=== PATIENT | male | born 1960 | race Caucasian/White ===

== ENCOUNTER 2018-10-13 11:33 | Inpatient (IN) | payer OTHER, SELFPAY ==
[2018-10-01 09:51] VITALS: BMI 42.0
[2018-10-13] VITALS (12 sets, daily range): BP systolic 106–157; BP diastolic 56–89; PULSE 60–97; RESP 15–19; TEMP 36.1–37.2; O2SAT 92–96; BMI 44.8
--- NOTE | 2018-10-13 06:00 | DI.RAD.S_ITS ---
PROCEDURE: XR KNEE RT 1TO2V INDICATIONS: post op TECHNIQUE: 2 view(s) of the knee acquired. COMPARISON: None. FINDINGS: Bones: Patient is status post knee joint arthroplasty. Hardware components are in expected positions. Visualized bony structures are intact. Soft tissues: Overlying postoperative changes are noted. IMPRESSION: Normal postoperative alignment anterior right total knee arthroplasty. Dictated by: Pan Schneider M.D. on 10/13/2018 at 16:24 Approved by: Pan Schneider M.D. on 10/13/2018 at 16:24
[2018-10-13] MEDS: ACETAMINOPHEN 325 MG TABLET 975 MG PO ×2 (12:08→20:17)
[2018-10-13] MEDS: PREGABALIN 75 MG CAPSULE PO (12:08)
[2018-10-13] MEDS: CELECOXIB 200 MG CAPSULE PO (12:08)
[2018-10-13] MEDS: LACTATED RINGERS 1,000 ML 84 ML IV (12:10)
--- NOTE | 2018-10-13 12:50 | PM.PREOP ---
Pre-operative Note Interval Note History & Physical reviewed/Exam performed by Physician: Yes Changes to H&P: No
[2018-10-13] MEDS: CEFAZOLIN VIAL 3 GM in SODIUM CHLORIDE 0.9% 100 ML 200 ML IV (13:26)
[2018-10-13] MEDS: TRANEXAMIC ACID 1,000 MG VIAL 1000 MG IV ×2 (13:46→15:20)
--- NOTE | 2018-10-13 14:07 | SUR.OPER ---
Supine on padded OR bed. Pillow under head, arms secured on padded armboards <90 degree abduction. Safety belt across torso. Non-operative leg secured with tape over blanket over lower leg. Operative leg secured in DeMayo/Dragan positioner. Foam padded brace at thigh of operative leg.
[2018-10-13] MEDS: MORPHINE 4 MG/ML INJ INJ (14:18)
[2018-10-13] MEDS: BUPIVACAINE 0.25% W/ EPI 30 ML VIAL INJ (14:19)
[2018-10-13] MEDS: BUPIVACAINE LIPOSOME 266 MG/20 ML VIAL INJ (14:19)
[2018-10-13] MEDS: LACTATED RINGERS 1,000 ML 42 ML IV (14:51)
--- NOTE | 2018-10-13 15:39 | P.OP_ITS ---
Operative Date/Time/Diagnoses Date of procedure: 10/13/18 Time of procedure: 15:20 Pre-op diagnosis: Right knee osteoarthritis Post-op diagnosis: same Procedure & Clinicians Procedure: Right total knee replacement Same procedure as scheduled: Yes Indications: The patient has had progressively worsening right knee pain with radiographic changes consistent with arthritis. Non-operative management has failed and the patient has requested total knee replacement. The risks, benefits and alternatives to surgery were discussed with the patient prior to proceeding. Risks discussed included, but were not limited to, failure to relieve pain, stiffness, infection, nerve damage, deep venous thrombosis, pulmonary embolism, stroke, coma, heart attack, permanent paralysis and , as well as the potential need for eventual revision of the prosthetic. Surgeon: Gordon Puentes [employer] Coxswain: Nataly Ko Click Yes if Unassisted: No Anesthesia Type: General and Local Operative Notes Findings: Severe medial compartment and patellofemoral osteoarthritis moderate lateral compartment osteoarthritis. Closure Type: primary Specimen(s): none sent Prosthetic devices, grafts, tissues, transplants, or devices: Implants used in this procedure were manufactured by the [employer] and included the BCS II Journey total knee replacement with a size 8 right Oxinium femur, a size 8 non porous tibial base plate, a 10 mm cross-linked polyethylene tibial insert and a 38 mm oval Laila II patellar component. Applied: implant(s) Estimated Blood Loss (mL): 50 Blood products transfused: none Tourniquet time (min): 62 Procedure in detail: The patient was seen in the pre-operative area, where the patient identified the right knee as the operative site and this was marked with my initials. The patient received pre-operative antibiotics, and was taken to the operating room and placed on the operative table in the supine position. After satisfactory anesthesia, a time analysis clerk out was performed. The right leg was encircled with a tourniquet about the proximal thigh, and the leg was prepared from the toes to the tourniquet with ChloroPrep in the usual fashion and draped through sterile drapes. The leg was elevated and exsanguinated with Eschmark bandage and the tourniquet inflated to 250 mmHg pressure. The knee was approached through an approximately 18 cm incision centered over the patella and carried into the knee through a medial parapatellar arthrotomy. The anterior osteophytes and soft tissues were removed. The rotational landmarks of [place]'s line and the transepicondylar axis were marked on the femur with electrocautery, and intramedullary guide holes for the femur and tibia were created. The distal femoral cut was made in 6 degrees of valgus using the intramedullary guide at the primary cut setting. The proximal tibial cut was then made using the intramedullary guide, taking 9 mm of bone off the less involved side. The extension gap was checked and the rotation of the femoral component confirmed with the gap balancing system. The anterior, posterior and chamfer cuts were then made. The posterior osteophytes and soft tissues were then removed. The posterior capsule was injected with part of a mixture of 60 ml 0.25% Marcaine mixed with 20 ml Exparel and 4 mg of morphine for post-operative pain control. The remainder of this mixture was injected into the capsule and subcutaneous tissues during cement curing. The tibia was prepared with the rotation set by an extra medullary guide. Trial tibial and femoral components were then placed and the intercondylar notch cut through the femoral trial. Range of motion was 0-125 degrees, with good stability throughout the range. The patella was then cut to accommodate the patellar prosthetic. There was a slight tendency for patellar subluxation so a ?pie crust? lateral release was performed. The trials were then removed, and the femoral hole plugged with a bone plug. The bone was prepared with pulsatile lavage, and dried with a sponge. Cement was applied and the final prosthetics placed. Excess cement was removed during and after cement curing. After confirming there was no extruded cement posteriorly, the final tibial insert was placed. The knee was copiously irrigated and the tourniquet deflated. Hemostasis was obtained. The capsule was closed with interrupted # 2 polyester suture. The subcutaneous layer was closed with 3-0 Vicryl, and the skin with a running 3-0 V-Lock suture and SteriStrips. An Aquacel Ag dressing was applied and the patient was taken to recovery having tolerated the procedure well. Complications: none Condition: stable Disposition: PACU Plan for aftercare: The patient will be maintained on a standard total knee replacement protocol with weight bearing as tolerated. The patient will receive aspirin and sequential compression devices for DVT prophylaxis. The patient will be discharged home when safe for the home environment.
[2018-10-13] MEDS: LACTATED RINGERS 1,000 ML 125 ML IV (17:33)
[2018-10-13] MEDS: OXYCODONE IR 10 MG TABLET PO (18:08)
[2018-10-13] MEDS: DOCUSATE 100 MG CAPSULE PO (20:17)
[2018-10-13] MEDS: ASPIRIN EC 81 MG TABLET PO (20:17)
[2018-10-13] MEDS: HYDROMORPHONE 0.5 MG INJ IV (20:17)
[2018-10-13] MEDS: DORZOLAMIDE/TIMOLOL OPHTH 10 ML 1 DROPS EYE-BOTH (20:23)
[2018-10-13] MEDS: CEFAZOLIN 2 GM/100 ML FROZ.PIGGY IV (20:31)
--- NOTE | 2018-10-13 22:45 | PC.NURSE ---
Justina shift note: 1630 Patient admitted s/p Right TKA, awake, alert, and pleasant. Pain controlled with medications ordered adequately, Oxycodone 10 mg. Oriented to room, environment, and plan of care. Requesting for medication to help with insomnia 0, called [facility] to request medication, awaiting for call.
[2018-10-14] MEDS: hydrOXYzine pamoate 25 MG CAPSULE PO (00:40)
[2018-10-14] MEDS: OXYCODONE IR 10 MG TABLET PO ×4 (00:40→16:54)
[2018-10-14] MEDS: LACTATED RINGERS 1,000 ML 125 ML IV (01:21)
[2018-10-14 03:21] VITALS: BP 146/76; PULSE 84; RESP 19; TEMP 37.3; O2SAT 95
[2018-10-14 05:31] LABS: Hematocrit 39.1 % (41-53); Hemoglobin 13.8 g/dL (13.5-17.5)
[2018-10-14] MEDS: CEFAZOLIN 2 GM/100 ML FROZ.PIGGY IV (05:44)
[2018-10-14 07:00] VITALS: BP 142/76; PULSE 82; RESP 16; TEMP 37.1; O2SAT 96
--- NOTE | 2018-10-14 07:29 | PM.PNPO.1 ---
Subjective Date Patient Seen: 10/14/18 Time Patient Seen: 07:29 Interval history: The patient reports the anticipated postoperative pain. Nursing reports he had insomnia and requests as needed Ambien. Exam Vital Signs (past 8 hours): - 10/13/18 23:35 10/14/18 03:21 Temperature 98.9 F 99.2 F Pulse Rate 72 84 Respiratory Rate 19 19 Blood Pressure 157/89 H 146/76 H Pulse Oximetry 96 95 Oxygen Delivery Method Room Air Oxygen Flow Rate 0 Narrative Exam Narrative: Right knee wound is dressed. If there is no drainage on the bandage. Calf is soft. Light touch and motion are intact in the right lower extremity. Objective Labs Result Diagrams: 10/14/18 05:07 Labs: Laboratory Results - last 24 hr 10/14/18 05:07 Hgb 13.8 Hct 39.1 L Assessment & Plan Post-op Postoperative Procedures Operation Date: 10/13/18 13:15 Actual Procedures Side Surgeon p Total Knee Arthroplasty Right Gordon Puentes MD Postoperative day: 1 Postoperative status: doing well, marginal pain control and anemia Postoperative status narrative: The patient is stable postoperative day 1 status post right total knee replacement. He has a very mild and anticipated post hemorrhagic anemia. He did have difficulty sleeping last night. Postoperative plan: routine post-op care and ambulate Postoperative plan narrative: The patient will be seeing Physical therapy today. He did not have physical therapy yesterday and given his size it is likely he will require an additional day of hospitalization to mobilize. He likely will be discharged tomorrow. I have written for 5 mg p.o. q.h.s. Ambien as needed. Time Spent With Patient less than 15 minutes
[2018-10-14] MEDS: ASPIRIN EC 81 MG TABLET PO ×2 (08:07→19:54)
[2018-10-14] MEDS: ACETAMINOPHEN 325 MG TABLET 975 MG PO ×3 (08:08→20:00)
[2018-10-14] MEDS: MELOXICAM 7.5 MG TABLET 15 MG PO (08:08)
[2018-10-14] MEDS: CALCIUM POLYCARBOPHIL 625 MG TABLET 1250 MG PO (08:09)
[2018-10-14] MEDS: AMLODIPINE 5 MG TABLET PO (08:09)
[2018-10-14] MEDS: DOCUSATE 100 MG CAPSULE PO ×2 (08:11→19:54)
[2018-10-14] MEDS: DORZOLAMIDE/TIMOLOL OPHTH 10 ML 1 DROPS EYE-BOTH ×2 (08:12→19:57)
[2018-10-14] MEDS: ONDANSETRON 4 MG ODT PO (08:15)
[2018-10-14] MEDS: hydroCHLOROthiazide 25 MG TABLET PO (08:15)
[2018-10-14] MEDS: MULTIVITAMIN 1 TABLET 1 TAB PO (08:16)
[2018-10-14] MEDS: SERTRALINE 50 MG TABLET 100 MG PO (08:16)
[2018-10-14] MEDS: LORATADINE 10 MG TABLET PO (08:16)
[2018-10-14] MEDS: POLYETHYLENE GLYCOL 3350 17 GM POWD.PACK PO (08:23)
[2018-10-14] MEDS: FOSINOPRIL 10 MG TABLET 40 MG PO (08:36)
--- NOTE | 2018-10-14 08:59 | CM.DANOTE ---
DCP: Case received, EMR reviewed and met with patient. Introduced self and role. DCP template completed with information currently available. Patient is a 57 year old male who admitted yesterday morning to the care of the surgical team. PCP: Dr. Gonzalez. Payer: confirmed: [employer]. Patient came to hospital for surgical procedure. He had R. total knee arthroplasty. He has had chronic right knee pain, and has history of right knee osteoarthritis. Patient is employed at [employer]. Met with him briefly in his room. Patient lives alone in [place], but he stated that he has a friend staying with him to help him when he goes home. Patient is already set up with outpatient physical therapy through [facility]. He has a cane and FWW for use. P: DCP to continue to follow closely. He has not been up yet working with physical therapy. Patient should be able to go home when he is cleared by physical therapy. Aurora Bowling RN/[facility]
--- NOTE | 2018-10-14 09:20 | PT.IIE ---
Current Diagnoses Unilateral primary osteoarthritis, right knee (10/13/18) Surgery Performed Operation Date: 10/13/18 13:15 Actual Procedures p Total Knee Arthroplasty(Right) - Gordon Puentes MD Surgical History (Last Updated 10/01/18 @ 10:26 by Alba Birmingham, RN) History of bilateral cataract extraction (Acute) History of corneal transplant (Acute) Hx of abdominal surgery (Acute) Hx of abdominal surgery (Acute ~1986) Hx of eye surgery (Acute) Hx of laminectomy (Acute 11/30/16) Hx of sinus surgery (Acute) Hx of tonsillectomy (Acute ~2014) Medical History (Last Updated 10/01/18 @ 10:26 by Alba Birmingham RN) Anxiety and depression (Acute) Bronchitis (Acute) Elevated liver enzymes (Acute) Fatty liver disease, nonalcoholic (Acute) Glaucoma (Acute) HTN (hypertension) (Acute) Numbness (Acute) Osteoarthritis (Acute) Psoriasis (Acute) Sinus drainage (Acute) Sleep apnea (Acute) Physical Therapy Inpatient Evaluation/Re-Eval M1 PT/OT-IP Prior Functional Status Start: 10/14/18 12:03 Freq: NEEDED Status: Active Protocol: Document 10/14/18 10:04 AB (Rec: 10/14/18 12:22 AB [id number]) Medical Review Prior Functional Status Medical History Reviewed Yes Communication able to make needs known Mobility and Gait stated that he is independent with all mobilities and ambulation without AD but has used a SPC ~ 1 week prior to surgery due to knee pain; stated that he had used a knee brace/support on R for a while prior to surgery Social History Household Members none Living Arrangements House Number of Floors (Floors) One Floor Number of Stairs To Enter/Railing? 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 [place] M2 PT-IP Current Condition Start: 10/14/18 12:03 Freq: NEEDED Status: Active Protocol: Document 10/14/18 10:04 AB (Rec: 10/14/18 12:22 AB [id number]) Physical Therapy Current Condition Current Condition Evaluation Date 10/14/18 Treatment Diagnosis s/p R TKA; difficulty in walking Onset Date 10/13/18 Weight Bearing Status Weight Bearing Status Weight Bear as Tolerated M3 PT-IP Subjective Start: 10/14/18 12:03 Freq: NEEDED Status: Active Protocol: Document 10/14/18 10:04 AB (Rec: 10/14/18 12:22 AB [id number]) Subjective Physical Therapy Visit Type Type Initial Evaluation Visit Start Time 09:20 Visit Stop Time 10:04 Total Visit Minutes 54 Number of YARD CLEANER Visits 0 Physical Therapy Visit Comments Patient Comments pt agreeable to do PT Therapy Pain Assessment Pain When Pain Assessed At Rest Pain Present Pain Present Pain Reported Location Right Knee Intensity 8 Scale Used Numeric (1 - 10) Pain Management Techniques Apply Cold Re-positioning Timing of Activity with Medications M4 PT-IP Mobility and Gait Start: 10/14/18 12:03 Freq: NEEDED Status: Active Protocol: Document 10/14/18 10:04 AB (Rec: 10/14/18 12:22 AB [id number]) PT-Bed Mobility Assessment Supine to Sit Supine to Sit Moderate Assistance 1 Person Assistance Sit to Supine Sit to Supine Moderate Assistance 1 Person Assistance PT-Transfer Assessment Sit to and From Stand Sit to and from Stand Moderate Assistance 1 Person Assistance Use of Upper Extremities Equipment Transfer Assistive Device Gait Belt Front Wheeled Walker Transfers Transfer Destination Chair Transfer Technique Stand Step Pivot Transfer Ability Level of Assist Moderate Assistance 1 Person Assistance Use of Upper Extremities Gait Assessment Gait Gait Assistance Required: Moderate Assistance Distance (Feet) 25 Able to Maintain Weight Bearing Status Yes During Gait Assistive Devices Assistive Device Gait Belt Front Wheeled Walker Gait Deviations General Gait Pattern Antalgic Decreased Stride Length Decreased Feet Clearance Factors Limiting Gait Function Factors Limiting Gait Function Decreased Activity Tolerance Decreased Strength Limited Range of Motion Pain Poor Balance PT-Balance Assessment Sitting Balance and Reactions Static Sitting Balance Ability Good Dynamic Sitting Balance Ability Good Standing Balance and Reactions Static Standing Balance Ability Fair Dynamic Standing Balance Ability Poor Device Used FWW M5 PT-IP Objective Assessments Start: 10/14/18 12:03 Freq: NEEDED Status: Active Protocol: Document 10/14/18 10:04 AB (Rec: 10/14/18 12:22 AB [id number]) Orientation Orientation/Cognition Level of Alertness Alert Orientation Name Age Birthday Month Date Year Day of Week Place Situation Language Function Ability No Deficits Noted Gross Range of Motion Lower Extremity ROM Assessment Right Impaired Impairments R knee flexion: ~ 50 deg R knee extension lacking ~ 30 deg to neutral Strength Lower Extremity Strength Assessment Right Impaired Knee 3-/5 Coordination Assessment Gross Coordination Gross Coordination WNL Sensation Assessment Sensation Gross Sensation WNL Muscle Tone Muscle Tone WNL Yes M6 PT-IP Treatment Start: 10/14/18 12:03 Freq: NEEDED Status: Active Protocol: Document 10/14/18 10:04 AB (Rec: 10/14/18 12:22 AB [id number]) Physical Therapy Treatment Exercises Exercises Ankle Pumps Quad Sets Heel Slides Education Education Provided Precautions Weight Bearing Status Post-Op Packet Safety M7 PT-IP Assessment and Plan Start: 10/14/18 12:03 Freq: NEEDED Status: Active Protocol: Document 10/14/18 10:04 AB (Rec: 10/14/18 12:22 AB [id number]) PT Summary Assessment and Plan Potential Rehabilitation Potential Good Status of Condition at Evaluation Evolving Summary Impairments Pain ROM Strength Balance Coordination Sensation Tone Cognition Bed Mobility Transfers Gait Activity Tolerance Assessment Summary pt requiring mod A with mobility but will likely improve during hospital stay. pt plans to go home with his mom assisting him. pt stated that he is set up for outpt PT already. Goals Bed Mobility Goal Standby Assistance Transfer Goal Standby Assistance Front Wheeled Walker Four Wheeled Walker Gait Goal Standby Assistance Front Wheel Walker Four Wheel Walker Gait Distance 150 Other Goals up/down 1 step using FWW/4WW SBA Days to Meet Goals 5 Frequency of Treatment Frequency Of Treatment Twice a Day Treatment Plan Physical Therapy Treatment Plan Bed Mobility Training Transfer Training Gait Training Therapeutic Exercise Balance Retraining Post Op Education Discharge Planning Hot or Cold Pack Neuromuscular Re-ed Coordination Retraining Manual Therapy Other Recommendations and Next Treatment ambulation, bed mobility, Focus caregiver training if appropriate, stair training Recommendations To Nursing Amount of Assist Needed 1 Person Assist Discharge Recommendations PT Discharge Recommendations Home with Assistance Outpatient PT Equipment Needed for Home Before FWW if not safe with 4WW Discharge
--- NOTE | 2018-10-14 09:58 | PC.NURSE ---
Addendum entered by Kindra Ag R.N. 10/14/18 11:48: PAIN - r knee discomfort well managed with earlier oxycodone, 5 on scale 0/10, given 10mg oxycodone with lunch for afternoon mobilization. Original Note: AM NOTE - pt is alert, states no pain when I don't move, otherwise describes as 8/10 r knee, aquacell cdi w/virgen wrap over, applied ice pack to knee, given 10mg oxycodone with breakfast, later stated his stomach felt different and given 4mg SL zofran, 2+ pedal edema, hr reg 88, phys therapy in this am and mobilized pt up oob to chair, states it was better than I thought.
[2018-10-14 11:40] VITALS: BP 145/76; PULSE 71; RESP 16; TEMP 36.8; O2SAT 94
[2018-10-14] MEDS: prednisoLONE OPHTH SUSP 1 DROPS EYE-LEFT (11:42)
--- NOTE | 2018-10-14 14:13 | PT.IPTN ---
Current Diagnoses Unilateral primary osteoarthritis, right knee (10/13/18) Surgery Performed Operation Date: 10/13/18 13:15 Actual Procedures p Total Knee Arthroplasty(Right) - Gordon Puentes MD Physical Therapy Treatment Note M2 PT-IP Current Condition Start: 10/14/18 12:03 Freq: NEEDED Status: Active Protocol: Document 10/14/18 10:04 AB (Rec: 10/14/18 12:22 AB [id number]) Physical Therapy Current Condition Current Condition Evaluation Date 10/14/18 Treatment Diagnosis s/p R TKA; difficulty in walking Onset Date 10/13/18 Weight Bearing Status Weight Bearing Status Weight Bear as Tolerated M3 PT-IP Subjective Start: 10/14/18 12:03 Freq: NEEDED Status: Active Protocol: Document 10/14/18 14:13 AB (Rec: 10/14/18 16:10 AB [id number]) Subjective Physical Therapy Visit Type Type Treatment Note Visit Start Time 14:13 Visit Stop Time 14:36 Total Visit Minutes 23 Number of FULL SERVICE SUPERVISOR Visits 0 Physical Therapy Visit Comments Patient Comments pt agreeable to do PT Therapy Pain Assessment Pain When Pain Assessed At Rest Pain Present Pain Present Pain Reported Location Right Knee Intensity 5 Scale Used Numeric (1 - 10) Pain Management Techniques Apply Cold Re-positioning Timing of Activity with Medications M4 PT-IP Mobility and Gait Start: 10/14/18 12:03 Freq: NEEDED Status: Active Protocol: Document 10/14/18 14:13 AB (Rec: 10/14/18 16:10 AB [id number]) PT-Bed Mobility Assessment Sit to Supine Sit to Supine Minimal Assistance 1 Person Assistance PT-Transfer Assessment Sit to and From Stand Sit to and from Stand Contact Guard Assistance Minimal Assistance Equipment Transfer Assistive Device Gait Belt Front Wheeled Walker Orthotic/Prosthetic Devices or Brace: No Transfers Transfer Technique pt ambulated to the bed using FWW Transfer Ability Level of Assist Contact Guard Assistance Minimal Assistance 1 Person Assistance Use of Upper Extremities Gait Assessment Gait Gait Assistance Required: Contact Guard Assist Minimum Assistance Distance (Feet) 75 Able to Maintain Weight Bearing Status Yes During Gait Assistive Devices Assistive Device Gait Belt Front Wheeled Walker Orthotic/Prosthetic Devices or Brace: No Gait Deviations General Gait Pattern Antalgic Decreased Stride Length Decreased Feet Clearance Factors Limiting Gait Function Factors Limiting Gait Function Decreased Activity Tolerance Decreased Strength Limited Range of Motion Pain Poor Balance Poor Safety Awareness Comments Gait Comments pt can be impulsive. continues to have slight R knee buckling during ambulation but able to control with cues provided. M5 PT-IP Objective Assessments Start: 10/14/18 12:03 Freq: NEEDED Status: Active Protocol: Document 10/14/18 10:04 AB (Rec: 10/14/18 12:22 AB [id number]) Orientation Orientation/Cognition Level of Alertness Alert Orientation Name Age Birthday Month Date Year Day of Week Place Situation Language Function Ability No Deficits Noted Gross Range of Motion Lower Extremity ROM Assessment Right Impaired Impairments R knee flexion: ~ 50 deg R knee extension lacking ~ 30 deg to neutral Strength Lower Extremity Strength Assessment Right Impaired Knee 3-/5 Coordination Assessment Gross Coordination Gross Coordination WNL Sensation Assessment Sensation Gross Sensation WNL Muscle Tone Muscle Tone WNL Yes M6 PT-IP Treatment Start: 10/14/18 12:03 Freq: NEEDED Status: Active Protocol: Document 10/14/18 14:13 AB (Rec: 10/14/18 16:10 AB [id number]) Physical Therapy Treatment Education Education Provided Safety M7 PT-IP Assessment and Plan Start: 10/14/18 12:03 Freq: NEEDED Status: Active Protocol: Document 10/14/18 14:13 AB (Rec: 10/14/18 16:10 AB [id number]) PT Summary Assessment and Plan Potential Rehabilitation Potential Good Summary Impairments Pain ROM Strength Balance Coordination Sensation Tone Cognition Bed Mobility Transfers Gait Activity Tolerance Progress Towards Goals Slow Progress due to Pain Slow Progress due to Activity Tolerance Assessment Summary pt requires one person assist with mobility and plans to go home with his mom to assist him. will conduct caregiver training when appropriate and will also complete stair climbing prior to d/c. informed pt regarding FWW recommendation vs 4WW at this time and pt agreed and stated that his mom will get him a FWW Goals Bed Mobility Goal Standby Assistance Transfer Goal Standby Assistance Front Wheeled Walker Gait Goal Standby Assistance Front Wheel Walker Gait Distance 150 Other Goals up/down 1 step using FWW SBA Days to Meet Goals 5 Frequency of Treatment Frequency Of Treatment Twice a Day Treatment Plan Physical Therapy Treatment Plan Bed Mobility Training Transfer Training Gait Training Therapeutic Exercise Balance Retraining Post Op Education Discharge Planning Hot or Cold Pack Neuromuscular Re-ed Coordination Retraining Manual Therapy Other Recommendations and Next Treatment ambulation, bed mobility, Focus caregiver training if appropriate, stair training Recommendations To Nursing Amount of Assist Needed 1 Person Assist Discharge Recommendations PT Discharge Recommendations Home with Assistance Outpatient PT Equipment Needed for Home Before FWW: pt stated that his mom Discharge will get him one
[2018-10-14 16:00] VITALS: PULSE 68; RESP 20; TEMP 36.7; O2SAT 93
--- NOTE | 2018-10-14 17:09 | PC.NURSE ---
Addendum entered by Annalee Carlson R.N. 10/14/18 22:04: Uneventful evening. Denies further complaints. Dsg CDI HL remains intact/patent. Call light w/in reach, pt calls appropriately for needs. Continue w/plan of care. Original Note: Pt watching TV. Requesting pain med. Med at 1700 w/oxycodone as per orders. Dsg to right knee CDI virgen wrap and aquacell. HL in right hand intact/patent. Stable post op course. Call light w/in reach, pt calls appropriately for needs.
[2018-10-14 19:36] VITALS: BP 138/74; PULSE 73; RESP 20; TEMP 36.9
[2018-10-14 23:25] VITALS: BP 137/79; PULSE 67; RESP 16; TEMP 36.7; O2SAT 96
[2018-10-15] MEDS: BIMATOPROST 0.01% OPHTH 2.5 ML 1 DROPS EYE-BOTH (00:50)
[2018-10-15] MEDS: ZOLPIDEM 5 MG TABLET PO (00:55)
[2018-10-15] MEDS: OXYCODONE IR 10 MG TABLET PO ×3 (00:55→12:26)
--- NOTE | 2018-10-15 07:21 | PM.DS.1 ---
History of Present Illness Date Patient Seen: 10/15/18 Time Patient Seen: 07:21 Chief complaint: [id number] Narrative: The history and physical exam are contained in the chart and a previously completed note. Please refer to that note for this information. Discharge Providers Date of admission: 10/13/18 11:33 Discharge Date: 10/15/18 Primary care physician: Jamil Gonzalez MD Consults: 10/13/18 16:54 Consult to Discharge Planning Routine Comment: Consult to Physical Therapy Evaluate & Treat Comment: Physician Instructions: postop TKA protocol Discharge provider: Gordon Puentes MD Summary Discharge Diagnosis: 1. Right knee osteoarthritis 2. Mild post hemorrhagic anemia Hospital Course: The patient was admitted to the hospital and taken directly to the operating room on October 13, 2018 where he underwent a right total knee replacement without complications. He made the slightly slow progress postoperatively with physical therapy. At the time of this dictation it is felt he likely will be discharged home after additional therapy today. Status at Discharge Cognitive/behavioral status at discharge: oriented Functional status at discharge: uses cane/walker Overall status at discharge: patient is progressing back to baseline Time Spent with Patient Less than 30 minutes Exam Vital Signs (past 8 hours): - 10/14/18 23:25 Temperature 98.1 F Pulse Rate 67 Respiratory Rate 16 Blood Pressure 137/79 Pulse Oximetry 96 Oxygen Delivery Method CPAP Oxygen Flow Rate 0 Narrative Exam Narrative: Right knee wound is dressed with no drainage on the bandage. Calf is soft. Light touch and motion are intact in the right lower extremity. Objective Labs Result Diagrams: 10/14/18 05:07 Discharge Plan Discharge Plan Patient Disposition: Home Discharge Med Rec/Prescriptions Prescriptions: New aspirin 81 mg Tablet,Delayed Release (Dr/Ec) 81 mg PO BID 42 Days Qty: 84 RF: 0 hydroxyzine pamoate 25 mg Capsule 25 mg PO Q6HR PRN (Reason: Nausea) Qty: 40 RF: 0 oxycodone 10 mg Tablet 10 mg PO Q3HR PRN (Reason: Pain, Severe (7-10)) Qty: 40 RF: 0 Continued sertraline [Zoloft] 100 MG tablet 100 mg PO QDAY Qty: 0 RF: 0 acetaminophen 325 MG tablet 1,300 mg PO BID PRN (Reason: pain) Qty: 0 RF: 0 dorzolamide-timolol [Cosopt] 2 %/0.5 % drops 1 drp EYE-BOTH BID Qty: 0 RF: 0 hydrochlorothiazide 25 MG tablet 25 mg PO QDAY Qty: 0 RF: 0 prednisolone acetate [Pred Forte] 1 % drops,suspension 1 drp EYE-LEFT BID Qty: 0 RF: 0 Lumigan 0.01 % drops 1 drp EYE-BOTH QDAY Qty: 0 RF: 0 Humira Pen Mngc-Tgaaao-Cmsk HS 40 MG/0.8 ML pen injector kit 40 mcg subcut Q2W Qty: 0 RF: 0 multivitamin [Multiple Vitamins] 1 EACH tablet 1 tab PO QDAY Qty: 0 RF: 0 calcium polycarbophil [FiberCon] 625 MG tablet 2 tab PO QDAY Qty: 0 RF: 0 meloxicam 15 MG tablet 15 mg PO DAILY Qty: 0 RF: 0 amlodipine 5 mg Tablet 5 mg PO DAILY RF: 0 lisinopril 40 mg Tablet 40 mg PO DAILY RF: 0 loratadine 10 mg Capsule 10 mg PO DAILY RF: 0 Xiidra 5 % Dropperette 1 drp EYE-BOTH BID RF: 0 fosinopril 40 mg Tablet 40 mg PO DAILY RF: 0 Follow up/Referrals: Jamil Gonzalez MD [Primary Care Provider] - Gordon Peuntes MD [Physician] - 3-5 Days Provider Discharge Instructions Diet: Diet as Tolerated and Carb-consistent/Diabetic Activity: You may bear weight as tolerated on your right leg. Cold/Heat Therapy: Apply ice to the right knee for 15 minutes every hour as needed for pain. Skin/Wound/Dressing Care Report to your healthcare provider any signs of infection, such as:: chills, fever, night sweats, increased pain, unusual drainage and unusual redness Dressing: You may remove the Marcelo wrap 3 days after surgery. You may shower with the deeper dressing in place. if the central strip of the deep dressing gets saturated with either water or blood please call the office to have it changed. Visit Report/Discharge Packet Instructions: DI for Knee Replacement Stand Alone Forms: Surgery Discharge Discharge Data Primary Care Provider: Jamil Gonzalez Attending Provider: Gordon Puentes Admit Date/Time: 10/13/18 11:33
[2018-10-15 08:14] VITALS: BP 137/70; PULSE 72; RESP 16; TEMP 37.2; O2SAT 93
[2018-10-15] MEDS: ACETAMINOPHEN 325 MG TABLET 975 MG PO (08:27)
[2018-10-15] MEDS: POLYETHYLENE GLYCOL 3350 17 GM POWD.PACK PO (08:28)
[2018-10-15] MEDS: DOCUSATE 100 MG CAPSULE PO (08:28)
[2018-10-15] MEDS: FOSINOPRIL 10 MG TABLET 40 MG PO (08:29)
[2018-10-15] MEDS: ASPIRIN EC 81 MG TABLET PO (08:30)
[2018-10-15] MEDS: AMLODIPINE 5 MG TABLET PO (08:30)
[2018-10-15] MEDS: MELOXICAM 7.5 MG TABLET 15 MG PO (08:30)
[2018-10-15] MEDS: CALCIUM POLYCARBOPHIL 625 MG TABLET 1250 MG PO (08:30)
[2018-10-15] MEDS: MULTIVITAMIN 1 TABLET 1 TAB PO (08:31)
[2018-10-15] MEDS: hydroCHLOROthiazide 25 MG TABLET PO (08:31)
[2018-10-15] MEDS: LORATADINE 10 MG TABLET PO (08:31)
[2018-10-15] MEDS: DORZOLAMIDE/TIMOLOL OPHTH 10 ML 1 DROPS EYE-BOTH (08:32)
[2018-10-15] MEDS: SERTRALINE 50 MG TABLET 100 MG PO (08:32)
[2018-10-15] MEDS: prednisoLONE OPHTH SUSP 1 DROPS EYE-LEFT (08:34)
--- NOTE | 2018-10-15 10:41 | PC.NURSE ---
Addendum entered by Kindra Ag R.N. 10/15/18 13:57: MS/PAIN/DC - pt showered, after lunch when family arrived, up with phys therapy and finished practicing mobilization, everardo, given 10mg oxycodone, DON dc'd, reviewed dc instructions with pt, family, belongings gathered, including own fww, cpap, glasses, bags cell phone, tablet and chargers, tsf to wc and mica washer gluer escorted to car. Original Note: AM NOTE - pt up to chair for breakfast, states pain 6/10 when mobilizing, none at rest, hr reg 77, ra 97%, 2+ pedal edema, passing flatus, discussed constipation and narcotics, did have scripts filled prior to surgery and has miralax at home, given laxatives this am and added prune juice tatianna bushra. virgen wrap over aquacell cdi, per discussion w/Ke MUNIZ, may remove the virgen wrap later today or the next.
[2018-10-15 11:40] VITALS: BP 114/79; PULSE 91; RESP 16; TEMP 36.3; O2SAT 94
--- NOTE | 2018-10-15 13:26 | PT.IPTN ---
Current Diagnoses Unilateral primary osteoarthritis, right knee (10/13/18) Surgery Performed Operation Date: 10/13/18 13:15 Actual Procedures p Total Knee Arthroplasty(Right) - Gordon Puentes MD Physical Therapy Treatment Note M2 PT-IP Current Condition Start: 10/14/18 12:03 Freq: NEEDED Status: Active Protocol: Document 10/14/18 10:04 AB (Rec: 10/14/18 12:22 AB [id number]) Physical Therapy Current Condition Current Condition Evaluation Date 10/14/18 Treatment Diagnosis s/p R TKA; difficulty in walking Onset Date 10/13/18 Weight Bearing Status Weight Bearing Status Weight Bear as Tolerated M3 PT-IP Subjective Start: 10/14/18 12:03 Freq: NEEDED Status: Active Protocol: Document 10/15/18 13:19 SA (Rec: 10/15/18 13:26 [id number]) Subjective Physical Therapy Visit Type Type Treatment Note Visit Start Time 08:56 Visit Stop Time 09:22 Total Visit Minutes 26 Number of PRECIPITATOR SUPERVISOR Visits 1 Physical Therapy Visit Comments Patient Comments Pt up in chair, agreeable to PT. Therapy Pain Assessment Pain When Pain Assessed During Mobility Pain Present Pain Present Pain Reported Location Right Knee Intensity 4 Scale Used Numeric (1 - 10) Pain Management Techniques Apply Cold Re-positioning Timing of Activity with Medications M4 PT-IP Mobility and Gait Start: 10/14/18 12:03 Freq: NEEDED Status: Active Protocol: Document 10/15/18 13:19 SA (Rec: 10/15/18 13:26 [id number]) PT-Transfer Assessment Sit to and From Stand Sit to and from Stand Contact Guard Assistance Use of Upper Extremities Equipment Transfer Assistive Device Gait Belt Front Wheeled Walker Orthotic/Prosthetic Devices or Brace: No Transfers Transfer Destination Bed Chair Transfer Technique Stand Step Pivot Transfer Ability Level of Assist Contact Guard Assistance 1 Person Assistance Comments Mobility Comments Pt CGA with transfers, did not assess bed mobility this AM. Cues for increasing WBing through RLE. Gait Assessment Gait Gait Assistance Required: Contact Guard Assist 1 Person Assist Distance (Feet) 80 Able to Maintain Weight Bearing Status Yes During Gait Assistive Devices Assistive Device Gait Belt Front Wheeled Walker Orthotic/Prosthetic Devices or Brace: No Gait Deviations General Gait Pattern Antalgic Decreased Stride Length Decreased Feet Clearance Factors Limiting Gait Function Factors Limiting Gait Function Decreased Activity Tolerance Decreased Strength Limited Range of Motion Pain Comments Gait Comments No R knee buckling with gait today, step to gait pattern and limited LLE foot elevation and step length. Stair Climbing Assessment Evaluation Level of Assist On Stairs Contact Guard Assistance Devices Stair Climbing Assistive Devices Front Wheel Walker Technique/Endurance Stair Climbing Direction Ascend and Descend Stair Climbing Technique Step to Step Number of Steps Climbed 1 Query Text: Stair Climbing Set # Repetitions (reps) 1 Comments Stair Climbing Comments Use of platform which is talller than his step at home, CGA and Mod cues for safe technique. M5 PT-IP Objective Assessments Start: 10/14/18 12:03 Freq: NEEDED Status: Active Protocol: Document 10/14/18 10:04 AB (Rec: 10/14/18 12:22 AB [id number]) Orientation Orientation/Cognition Level of Alertness Alert Orientation Name Age Birthday Month Date Year Day of Week Place Situation Language Function Ability No Deficits Noted Gross Range of Motion Lower Extremity ROM Assessment Right Impaired Impairments R knee flexion: ~ 50 deg R knee extension lacking ~ 30 deg to neutral Strength Lower Extremity Strength Assessment Right Impaired Knee 3-/5 Coordination Assessment Gross Coordination Gross Coordination WNL Sensation Assessment Sensation Gross Sensation WNL Muscle Tone Muscle Tone WNL Yes M6 PT-IP Treatment Start: 10/14/18 12:03 Freq: NEEDED Status: Active Protocol: Document 10/15/18 13:19 (Rec: 10/15/18 13:26 [id number]) Physical Therapy Treatment Exercises Exercises Ankle Pumps Gluteal Sets Quad Sets Heel Slides Seated Knee Flexion/Extension Education Education Provided Post-Op Packet Safety Other Treatments Other Treatment Performed Pt has FWW and elevated toilet seat. M7 PT-IP Assessment and Plan Start: 10/14/18 12:03 Freq: NEEDED Status: Active Protocol: Document 10/15/18 13:19 (Rec: 10/15/18 13:26 [id number]) PT Summary Assessment and Plan Potential Rehabilitation Potential Good Summary Assessment Summary Decreased pain overall this AM , decreased assist needed with mobility tasks. Mother to be here for caregiver training this afternoon. Frequency of Treatment Frequency Of Treatment Twice a Day Treatment Plan Physical Therapy Treatment Plan Bed Mobility Training Transfer Training Gait Training Therapeutic Exercise Balance Retraining Post Op Education Discharge Planning Hot or Cold Pack Neuromuscular Re-ed Coordination Retraining Manual Therapy Recommendations To Nursing Amount of Assist Needed 1 Person Assist Discharge Recommendations PT Discharge Recommendations Home with Assistance Outpatient PT Equipment Needed for Home Before Has obtained a FWW Discharge
--- NOTE | 2018-10-15 13:37 | PT.IPTN ---
Current Diagnoses Unilateral primary osteoarthritis, right knee (10/13/18) Surgery Performed Operation Date: 10/13/18 13:15 Actual Procedures p Total Knee Arthroplasty(Right) - Gordon Puentes MD Physical Therapy Treatment Note M2 PT-IP Current Condition Start: 10/14/18 12:03 Freq: NEEDED Status: Active Protocol: Document 10/14/18 10:04 AB (Rec: 10/14/18 12:22 AB [id number]) Physical Therapy Current Condition Current Condition Evaluation Date 10/14/18 Treatment Diagnosis s/p R TKA; difficulty in walking Onset Date 10/13/18 Weight Bearing Status Weight Bearing Status Weight Bear as Tolerated M3 PT-IP Subjective Start: 10/14/18 12:03 Freq: NEEDED Status: Active Protocol: Document 10/15/18 13:27 SA (Rec: 10/15/18 13:37 SA [email or web address]) Subjective Physical Therapy Visit Type Type Treatment Note Visit Start Time 12:59 Visit Stop Time 13:18 Total Visit Minutes 19 Number of FISH FLIPPER Visits 2 Physical Therapy Visit Comments Patient Comments Pt's Mom present for caregiver training, d/c home this afternoon. Therapy Pain Assessment Pain When Pain Assessed During Mobility Pain Present Pain Present Pain Reported Location Right Knee Intensity 2 Scale Used Numeric (1 - 10) Pain Management Techniques Apply Cold Re-positioning Timing of Activity with Medications M4 PT-IP Mobility and Gait Start: 10/14/18 12:03 Freq: NEEDED Status: Active Protocol: Document 10/15/18 13:27 SA (Rec: 10/15/18 13:37 SA [id number]) PT-Bed Mobility Assessment Supine to Sit Supine to Sit Standby Assistance Sit to Supine Sit to Supine Standby Assistance Scooting Scooting to Edge of Bed Standby Assistance Scooting Up and Down in Bed Standby Assistance PT-Transfer Assessment Sit to and From Stand Sit to and from Stand Standby Assistance Use of Upper Extremities Equipment Transfer Assistive Device Gait Belt Front Wheeled Walker Orthotic/Prosthetic Devices or Brace: No Transfers Transfer Destination Bed Chair Transfer Technique Stand Step Pivot Transfer Ability Level of Assist Contact Guard Assistance 1 Person Assistance Comments Mobility Comments Pt able to clear LEs over EOB with SUP<>Sit with use of gait belt around RLE, SBA with cues. CGA-SBA with transfers, no knee buckling or LOB noted. Gait Assessment Gait Gait Assistance Required: Standby Assistance Contact Guard Assist 1 Person Assist Distance (Feet) 100 Able to Maintain Weight Bearing Status Yes During Gait Assistive Devices Assistive Device Gait Belt Front Wheeled Walker Gait Deviations General Gait Pattern Antalgic Decreased Stride Length Decreased Feet Clearance Factors Limiting Gait Function Factors Limiting Gait Function Decreased Activity Tolerance Decreased Strength Limited Range of Motion Comments Gait Comments Improving gait, able to correct LLE step length with cues. Relies heavily on UEs for WBing. Stair Climbing Assessment Evaluation Level of Assist On Stairs Contact Guard Assistance Devices Stair Climbing Assistive Devices Front Wheel Walker Technique/Endurance Stair Climbing Direction Ascend and Descend Stair Climbing Technique Step to Step Number of Steps Climbed 1 Query Text: Stair Climbing Set # Repetitions (reps) 2 Comments Stair Climbing Comments Pt able to ascend/descend standard step with CGA and use of FWW. M5 PT-IP Objective Assessments Start: 10/14/18 12:03 Freq: NEEDED Status: Active Protocol: Document 10/14/18 10:04 AB (Rec: 10/14/18 12:22 [id number]) Orientation Orientation/Cognition Level of Alertness Alert Orientation Name Age Birthday Month Date Year Day of Week Place Situation Language Function Ability No Deficits Noted Gross Range of Motion Lower Extremity ROM Assessment Right Impaired Impairments R knee flexion: ~ 50 deg R knee extension lacking ~ 30 deg to neutral Strength Lower Extremity Strength Assessment Right Impaired Knee 3-/5 Coordination Assessment Gross Coordination Gross Coordination WNL Sensation Assessment Sensation Gross Sensation WNL Muscle Tone Muscle Tone WNL Yes M6 PT-IP Treatment Start: 10/14/18 12:03 Freq: NEEDED Status: Active Protocol: Document 10/15/18 13:27 (Rec: 10/15/18 13:37 [id number]) Physical Therapy Treatment Exercises Exercises Ankle Pumps Gluteal Sets Quad Sets Heel Slides Seated Knee Flexion/Extension Education Education Provided Post-Op Packet Safety M7 PT-IP Assessment and Plan Start: 10/14/18 12:03 Freq: NEEDED Status: Active Protocol: Document 10/15/18 13:27 (Rec: 10/15/18 13:37 [id number]) PT Summary Assessment and Plan Potential Rehabilitation Potential Good Summary Assessment Summary Continued decreased pain and improving mobility. Mother present for caregiver training and receptive, pt ready for d /c this afternoon. Frequency of Treatment Frequency Of Treatment Twice a Day Treatment Plan Physical Therapy Treatment Plan Bed Mobility Training Transfer Training Gait Training Therapeutic Exercise Balance Retraining Post Op Education Discharge Planning Hot or Cold Pack Neuromuscular Re-ed Coordination Retraining Manual Therapy Recommendations To Nursing Amount of Assist Needed 1 Person Assist Discharge Recommendations PT Discharge Recommendations Home with Assistance Outpatient PT
== END 2018-10-15 14:04 | disposition home or self-care (01) | DRG 470 ==
PROVIDERS: Admitting Provider Orthopaedic Surgery; Family Provider Family Medicine; PCP Family Medicine; Visit Provider Orthopaedic Surgery
PROC: 0SRC0JZ Replacement of Right Knee Joint with Synthetic Substitute, Open Approach (ICD-10-PCS; CPT 27447; principal; 2018-10-13 13:15)
DX: M17.11 Unilateral primary osteoarthritis, right knee (principal); Z68.41 Body mass index [BMI] 40.0-44.9, adult; E66.01 Morbid (severe) obesity due to excess calories; G47.33 Obstructive sleep apnea (adult) (pediatric); I10 Essential (primary) hypertension
CPT/HCPCS: 36415; 73560; 85014; 85018; 97110; 97116; 97162; 97530; C1776; C9290; J0690; J1100; J1170; J2250; J2270; J2405; J2704; J3010

== ENCOUNTER → 2020-05-31 09:23 | Outpatient (CLI) | payer OTHER, SELFPAY ==
[2018-10-13 18:00] VITALS: BMI 44.8
[2020-05-31 10:09] LABS: COVID19 -Nasal RAPID Negative (Negative)
== END ==
PROVIDERS: Family Provider Family Medicine; PCP Family Medicine; Visit Provider Surgery
DX: Z01.812 Encounter for preprocedural laboratory examination (principal); Z11.59 Encounter for screening for other viral diseases
CPT/HCPCS: 87635; C9803

== ENCOUNTER 2020-06-01 13:22 | Day surgery (SDC) | payer OTHER, SELFPAY ==
[2018-10-13 18:00] VITALS: BMI 44.8
[2020-06-01 13:53] VITALS: BP 135/78; PULSE 58; RESP 18; TEMP 35.8; O2SAT 96; BMI 43.3
[2020-06-01] MEDS: LACTATED RINGERS 1,000 ML 200 ML IV (13:58)
--- NOTE | 2020-06-01 14:21 | PM.HP.1 ---
History of Present Illness History of Present Illness Date Patient Seen: 06/01/20 Time Patient Seen: 14:21 Chief complaint: SDC Narrative: The patient presents for colorectal sreening. He had previously normal colonoscopy 11 years ago. No personal or family history of colon cancer. On further history denies any recent gastrointestinal symptoms. No nausea, vomiting, abdominal pain, loss of appetite, unexplained weight loss, change in bowel habits, diarrhea, constipation, melena, hematochezia, or bright red blood per rectum. Patient History Medical History Anxiety and depression Bronchitis Elevated liver enzymes Fatty liver disease, nonalcoholic Glaucoma HTN (hypertension) Numbness Osteoarthritis Psoriasis Sinus drainage Sleep apnea Surgical History History of bilateral cataract extraction History of corneal transplant Hx of abdominal surgery Hx of abdominal surgery (~1986) Hx of eye surgery Hx of laminectomy (11/30/16) Hx of sinus surgery Hx of tonsillectomy (~2014) Family & Social History Social History: household members significant other,none Tobacco & Substance use: Smoking Status Never smoker alcohol intake current alcohol intake frequency holiday/special occasion Substance Use Type does not use Meds Home Medications and Allergies Home Medications Medication Instructions Recorded Confirmed Type acetaminophen 1,300 mg PO BID PRN #0 07/22/16 06/01/20 History dorzolamide-timolol [Cosopt] 1 drp EYE-BOTH BID #0 07/22/16 06/01/20 History hydrochlorothiazide 25 mg PO QDAY #0 07/22/16 06/01/20 History prednisolone acetate [Pred Forte] 1 drp EYE-LEFT BID #0 07/22/16 06/01/20 History sertraline [Zoloft] 100 mg PO QDAY #0 07/22/16 06/01/20 History Humira Pen Llbl-Trcwag-Vxls HS 40 mcg SUBCUT Q2W #0 11/27/16 06/01/20 History calcium polycarbophil [FiberCon] 2 tab PO QDAY #0 11/27/16 06/01/20 History multivitamin [Multiple Vitamins] 1 tab PO QDAY #0 11/27/16 06/01/20 History Xiidra 1 drp EYE-BOTH BID 10/01/18 06/01/20 History amlodipine 5 mg PO DAILY 10/01/18 06/01/20 History loratadine 10 mg PO DAILY 10/01/18 06/01/20 History fosinopril 40 mg PO DAILY 10/13/18 06/01/20 History latanoprost 1 drp EYE-BOTH DAILY 06/01/20 06/01/20 History Allergies Allergy/AdvReac Type Severity Reaction Status Date / Time Penicillins [PENICILLINS] Allergy Unknown Pt told as Verified 06/01/20 13:49 a child-unknown reaction Review of Systems Review of Systems Narrative: A 10 point review of systems is negative except as noted in the HPI Exam Vital Signs (past 8 hours): - 06/01/20 13:53 Temperature 96.5 F L Pulse Rate 58 L Respiratory Rate 18 Blood Pressure 135/78 Pulse Oximetry 96 Oxygen Delivery Method Room Air Oxygen Flow Rate 0 Narrative Exam Narrative: General-no acute distress, morbidly obese male HEENT-moist mucous membranes, no scleral icterus Neck-supple, no lymphadenopathy Chest- non labored respirations, clear to auscultation bilaterally Cardiac-regular rate no peripheral edema Abdomen-soft, nontender, non distended Extremities-warm, well perfused Neurological-alert and oriented, no focal deficits Assessment & Plan Assessment & Plan narrative: The patient requires colorectal screening and colonoscopy is recommended. Technical details were discussed. Risks, benefits, alternatives explained. Risks including but not limited to myocardial infarction, aspiration, bleeding, pain, missed lesion, incomplete examination, need for further radiographic studies, colonic perforation, and need for major abdominal surgery were discussed. All questions were answered to their satisfaction, and they are in agreement with this plan.
[2020-06-01] MEDS: MIDAZOLAM 5 MG/5 ML VIAL IV (14:46)
--- NOTE | 2020-06-01 14:46 | PM.OP.ENDO ---
Operative Date/Time/Diagnoses Date of procedure: 06/01/20 Time of procedure: 14:46 Pre-op diagnosis: Screening colonoscopy Post-op diagnosis: other (Diverticulosis) Procedure & Clinicians Study performed: Colonoscopy Same procedure as scheduled: Yes Indications: 59-year-old male last colonoscopy 11 years ago normal here for routine screening Surgeon: Law Srinivasan Procedure Notes Procedure in detail: Medications: Conscious sedation using 5mg IV midazolam and 150mcg IV of fentanyl The history and physical was performed/updated and the patient is ASA class is 2. The procedure was discussed in detail with the patient. Potential risks complications including infection, bleeding, missed diagnosis, perforation, need for surgery, and were explained. Their questions were answered and informed consent was obtained. Patient was brought to the procedure room and placed standard monitoring equipment. The patient's vital signs were monitored continuously throughout the entire procedure. Prior to starting time-out was performed. The patient was placed in the left lateral recumbent position. Procedural sedation was administered. Examination began with a thorough inspection of the perianal area there was no evidence of fissures, fistulae, external hemorrhoids or cutaneous malignancy, there were some external skin tags. The colonoscopy scope was then placed into the anal canal and was advanced to the cecum, which was identified by the ileocecal valve, the appendiceal orifice and the confluence of the taenia. The scope was then slowly withdrawn examining colon thoroughly in all directions, irrigating it of any residual stool. No masses or polyps Sigmoid diverticulosis Grade 1 internal hemorrhoids The patient tolerated the procedure well. They will be discharged once criteria are met. The prep was of good/excellent quality. The withdrawl time was * minutes. The sedation time was * minutes. Specimen(s): none sent Complications: none Impression: Diverticulosis Post-procedure Recommendations: Colonscopy in 10 years Disposition: same day surgery
[2020-06-01] MEDS: fentaNYL 250 MCG/5 ML INJ IV (14:47)
[2020-06-01 14:48] VITALS: BP 147/71; PULSE 58; RESP 12; TEMP 36.4; O2SAT 96
[2020-06-01 14:53] VITALS: BP 136/70; PULSE 86; RESP 12; O2SAT 95
[2020-06-01 14:58] VITALS: BP 142/73; PULSE 62; RESP 16; O2SAT 96
[2020-06-01 15:03] VITALS: BP 125/66; PULSE 58; RESP 14; O2SAT 96
[2020-06-01 15:08] VITALS: BP 126/71; PULSE 58; RESP 12; TEMP 36.4; O2SAT 97
== END 2020-06-01 15:26 | disposition home or self-care (01) ==
PROVIDERS: Family Provider Family Medicine; PCP Family Medicine; Referring Provider Family Medicine; Visit Provider Surgery
PROC: 0DJD8ZZ Inspection of Lower Intestinal Tract, Via Natural or Artificial Opening Endoscopic (ICD-10-PCS; CPT 45378; principal; 2020-06-01 14:30)
DX: Z12.11 Encounter for screening for malignant neoplasm of colon (principal); K57.30 Diverticulosis of large intestine without perforation or abscess without bleeding; K64.0 First degree hemorrhoids
CPT/HCPCS: 45378; J2250; J3010

== ENCOUNTER 2022-03-14 17:35 | Observation (INO) | payer OTHER, SELFPAY ==
[2018-10-13 18:00] VITALS: BMI 44.8
[2022-03-14 17:49] VITALS: BP 216/105; PULSE 85; RESP 22; TEMP 36.2; O2SAT 98; BMI 43.2
--- NOTE | 2022-03-14 18:00 | PC.NURSE ---
Patient placed in room, resp even and unlabored. Tolerated saliva. Speaking in full sentences.
--- NOTE | 2022-03-14 19:10 | ED_ITS ---
HPI - Skin/Abscess/Foreign Bdy General Chief complaint: Skin/Abscess/Foreign Body Stated complaint: Something stuck in throat Time Seen by Provider: 03/14/22 19:10 Source: patient Mode of arrival: Family Vehicle Limitations: no limitations History of Present Illness HPI narrative: This is a 61-year-old male with history of hypertension, diabetes and presents with sensation of food being stuck in his upper chest after eating steak earlier today. Patient states it started about 16 40 this evening while eating. He is had similar episodes in the past but always been able to get it go down when he drinks something. He states tonight anything that goes in immediately comes back out and he has been having to spit his saliva out. Patient denies any difficulty with breathing. He states used to happen more frequently had a tonsillectomy about 10 years ago and that seemed to improve things. He does not believe he is ever had any EGD. Patient denies any other symptoms currently. He is more comfortable standing than sitting down. He is allergic to penicillin. He states he is had back surgery, tonsillectomy and orthopedic surgeries. Patient's primary care is Dr. Gonzalez he is accompanied by his [facility] er today. Related Data Home Medications Medication Instructions Recorded Confirmed dorzolamide 22.3 mg-timolol 6.8 1 drp EYE-BOTH BID ##0 07/22/16 03/14/22 mg/mL eye drops (Cosopt) hydrochlorothiazide 25 mg tablet 25 mg PO QDAY ##0 07/22/16 03/14/22 prednisolone acetate 1 % eye 1 drp EYE-LEFT BID ##0 07/22/16 03/14/22 drops,suspension (Pred Forte) sertraline 100 mg tablet (Zoloft) 100 mg PO QDAY ##0 07/22/16 03/14/22 adalimumab 40 mg/0.8 mL 40 mcg SUBCUT Q2W ##0 11/27/16 03/14/22 subcutaneous pen kit (Humira Pen Ahcppzgnx-Wsptrcg-Bkpz Hid Sup Start) calcium polycarbophil 625 mg 2 tab PO QDAY ##0 11/27/16 03/14/22 tablet (FiberCon) multivitamin (Multiple Vitamins 1 tab PO QDAY ##0 11/27/16 03/14/22 tablet) amlodipine 5 mg tablet 5 mg PO DAILY 10/01/18 03/14/22 lifitegrast 5 % eye drops in a 1 drp EYE-BOTH BID 10/01/18 03/14/22 dropperette (Xiidra) loratadine 10 mg capsule 10 mg PO DAILY 10/01/18 03/14/22 fosinopril 40 mg tablet 40 mg PO DAILY 10/13/18 03/14/22 latanoprost 0.005 % eye drops 1 drp EYE-BOTH DAILY 06/01/20 03/14/22 Allergies Allergy/AdvReac Type Severity Reaction Status Date / Time Penicillins [PENICILLINS] Allergy Unknown Pt told as Verified 03/14/22 17:49 a child-unknown reaction Review of Systems Review of Systems ROS Unobtainable: All systems reviewed & are unremarkable except as noted in HPI and below Patient History Medical History (Updated 03/14/22 @ 20:19 by Ramona Parham MD) Anxiety and depression Bronchitis Elevated liver enzymes Fatty liver disease, nonalcoholic Glaucoma HTN (hypertension) Numbness Osteoarthritis Psoriasis Sinus drainage Sleep apnea Surgical History History of bilateral cataract extraction History of corneal transplant Hx of abdominal surgery Hx of abdominal surgery (~1986) Hx of eye surgery Hx of laminectomy (11/30/16) Hx of sinus surgery Hx of tonsillectomy (~2014) Social History household members: significant other and none Smoking Status: Never smoker alcohol intake: current Smoking Status: Never smoker alcohol intake frequency: holidays/special occasions only Substance Use Type: does not use Exam Narrative Exam Narrative: GENERAL: Alert and oriented x three, male in mild distress. Standing in the room HEENT: Head normocephalic, atraumatic, EOMI, pupils reactive, face symmetric, moist mucous membranes, patient does spit occasionally NECK: Supple, full range of motion CARDIOVASCULAR: Regular rate and rhythm without murmurs, rubs or gallops. RESPIRATORY: Breath sounds equal bilaterally, no wheezes rales or rhonchi. ABDOMEN: Soft, nontender. Normoactive bowel sounds all 4 quadrants. No guarding or rebound, rigidity, no mass : No CVA tenderness EXTREMITIES: Normal range of motion, no clubbing or edema. Neurovascularly intact NEUROLOGICAL: Cranial nerves II through XII grossly intact. Moving all extremities SKIN: Warm, dry, no petechiae, no rashes or lesions. Initial Vital Signs Initial Vital Signs: Vital Signs Temperature 97.1 F L 03/14/22 17:49 Pulse Rate 85 03/14/22 17:49 Respiratory Rate 22 03/14/22 17:49 Blood Pressure 216/105 H 03/14/22 17:49 Pulse Oximetry 98 03/14/22 17:49 Oxygen Delivery Method 03/14/22 17:49 Course Orders Ordered: Diazepam (Diazepam 10 Mg/2 Ml Syringe) 2 mg IV Q6HR GAGANDEEP Last Admin: 03/15/22 06:03 Dose: Not Given Documented By: Admin: 03/15/22 00:00 Dose: Not Given Documented By: SPENCER Dorzolamide/Timolol (Dorzolamide/Timolol Ophth 10 Ml) 1 drops EYE-BOTH BID GAGANDEEP Lactated Ringer's (Lactated Ringers) 1,000 mls @ 100 mls/hr IV CONT GAGANDEEP Last Admin: 03/14/22 21:35 Dose: 100 mls/hr Documented By: SPENCER Latanoprost (Latanoprost 0.005% Ophth 2.5 Ml) 1 drops EYE-BOTH BEDTIME GAGANDEEP Prednisolone Acetate (Prednisolone Ophth Susp) 1 drops EYE-LEFT BID GAGANDEEP Discontinued Medications Glucagon (Glucagon,Human Recombinant 1 Mg/Ml Vial) 1 mg IV NOW ONE Stop: 03/14/22 19:21 Last Admin: 03/14/22 19:34 Dose: 1 mg Documented By: [facility] Nitroglycerin (Nitroglycerin Oint 1 Inch/Gm Oint...G.) 1 inch TOP NOW ONE Stop: 03/14/22 20:50 Last Admin: 03/14/22 21:35 Dose: 1 inch Documented By: SPENCER Reevaluation(s) Reevaluation #1: Patient still throws up everything that he takes in to drink. Time: 19:44 Consultations Consultation #1: Dr. Parham, general surgery. covid swab sent. Asked that we place patient in observation she see the patient discussed that he is pretty much stayed in the entire time secondary to discomfort. But is managing his airway. Patient may be taken tonight versus tomorrow morning according to Dr. Parham. Time: 19:45 Vital Signs Vital signs: Vital Signs - 8 hr 03/14/22 17:49 Temperature 97.1 F L Pulse Rate 85 Respiratory Rate 22 Blood Pressure 216/105 H Pulse Oximetry 98 Oxygen Delivery Method Room Air MDM - Skin/Abscess/Foreign Bdy Lab Data Result diagrams: 03/14/22 22:50 03/14/22 22:50 MDM Narrative Medical decision making narrative: This is a 61-year-old male with complaint of sensation of food stuck in his esophagus. Patient states it has been since 4:00 pm this evening he states he has been continuing to spit out saliva and any time he tries to take fluids and they come right back out. Patient tried heel strike while drinking fluid without improvement. Tried glucagon with carbonated beverage without success p atient tried multiple times with carbonated beverage and has immediate exit of fluid. Discussed with General surgery, Dr. Parham plans to take for food impaction likely 1st thing in the morning secondary to staffing issues. Patient actually finds this more agreeable as his mother is his ride she does not drive at nighttime so would be more beneficial for them to go to the OR in the morning and not this evening. Discharge Plan Departure Patient Disposition: Admitted as Observation Clinical Impression: Food impaction of esophagus Admit Date/Time: 03/14/22 19:49 Admit Provider: Ramona Parham
[2022-03-14] MEDS: GLUCAGON,HUMAN RECOMBINANT 1 MG/ML VIAL IV (19:34)
--- NOTE | 2022-03-14 19:46 | PC.NURSE ---
patient vomiting after glucagone, each attempt of PO fluids patient vomits back up. Reports same amount of discomfort in upper abd
--- NOTE | 2022-03-14 19:57 | PC.NURSE ---
Patient reports concerns of steak stuck in throat. Spitting saliva, able to speak in full sentences.
--- NOTE | 2022-03-14 20:12 | PM.HP.1 ---
History of Present Illness History of Present Illness Date Patient Seen: 03/15/22 Time Patient Seen: 07:57 Date of Onset of Symptoms: 03/14/22 Chief complaint: Something stuck in throat Narrative: Food bolus lodged in throat starting around 1630. Unable to drink around. not able to handle all secretions. Standard tricks tried w/o success. Currently extremely hypertensive, anti htn meds included in home meds. Had EGD for ulcers in the past. NOT on antireflux meds. The FB is steak. Patient History Medical History Anxiety and depression Bronchitis Elevated liver enzymes Fatty liver disease, nonalcoholic Glaucoma HTN (hypertension) Numbness Osteoarthritis Psoriasis Sinus drainage Sleep apnea Surgical History History of bilateral cataract extraction History of corneal transplant Hx of abdominal surgery Hx of abdominal surgery (~1986) Hx of eye surgery Hx of laminectomy (11/30/16) Hx of sinus surgery Hx of tonsillectomy (~2014) Family & Social History Social History: household members significant other,none Safety & Behavioral: Feels Safe in Current Yes Environment Been Physically Hurt or No Threatened By a Person Tobacco & Substance use: Smoking Status Never smoker alcohol intake current alcohol intake frequency holiday/special occasion Substance Use Type does not use Meds Home Medications and Allergies Home Medications Medication Instructions Recorded Confirmed Type dorzolamide 22.3 mg-timolol 6.8 1 drp EYE-BOTH BID ##0 07/22/16 03/14/22 History mg/mL eye drops (Cosopt) hydrochlorothiazide 25 mg tablet 25 mg PO QDAY ##0 07/22/16 03/14/22 History prednisolone acetate 1 % eye 1 drp EYE-LEFT BID ##0 07/22/16 03/14/22 History drops,suspension (Pred Forte) sertraline 100 mg tablet (Zoloft) 100 mg PO QDAY ##0 07/22/16 03/14/22 History adalimumab 40 mg/0.8 mL 40 mcg SUBCUT Q2W ##0 11/27/16 03/14/22 History subcutaneous pen kit (Humira Pen Qhytpfxnw-Bcigwtf-Ebvw Hid Sup Start) calcium polycarbophil 625 mg 2 tab PO QDAY ##0 11/27/16 03/14/22 History tablet (FiberCon) multivitamin (Multiple Vitamins 1 tab PO QDAY ##0 11/27/16 03/14/22 History tablet) amlodipine 5 mg tablet 5 mg PO DAILY 10/01/18 03/14/22 History lifitegrast 5 % eye drops in a 1 drp EYE-BOTH BID 10/01/18 03/14/22 History dropperette (Xiidra) loratadine 10 mg capsule 10 mg PO DAILY 10/01/18 03/14/22 History fosinopril 40 mg tablet 40 mg PO DAILY 10/13/18 03/14/22 History latanoprost 0.005 % eye drops 1 drp EYE-BOTH DAILY 06/01/20 03/14/22 History Allergies Allergy/AdvReac Type Severity Reaction Status Date / Time Penicillins [PENICILLINS] Allergy Unknown Pt told as Verified 03/15/22 07:47 a child-unknown reaction Review of Systems Review of Systems ROS: Yes All systems reviewed with the patient and are negative except as otherwise documented Exam Vital Signs (past 8 hours): - 03/14/22 17:49 Temperature 97.1 F L Pulse Rate 85 Respiratory Rate 22 Blood Pressure 216/105 H Pulse Oximetry 98 Oxygen Delivery Method Room Air Oxygen Delivery Method Room Air Const General: cooperative and anxious Nutritional Appearance: overweight Orientation: alert, awake and oriented x3 HENMT Head: normal to inspection Eyes General: appearance normal, both eyes and all related structures Neck Neck: normal visual inspection and trachea midline Chest Chest: normal inspection of the chest Resp Effort & Inspection: normal respiratory effort and able to speak in complete sentences Cardio Rate: regular rate Rhythm: regular rhythm GI Palpation: soft Skin General: no rashes or lesions noted and elasticity normal Neuro General: patient alert, patient awake and patient oriented x3 Cognition: normal cognition Extrem General: normal to inspection Psych Judgment: judgment good Objective Labs Result Diagrams: 03/14/22 22:50 03/14/22 22:50 Assessment & Plan Assessment and plan (1) Food impaction of esophagus: Status: Acute (2) Hypertension: Status: Acute (3) Obesity, morbid, BMI 40.0-49.9: Status: Acute (4) Sleep apnea: Problem details: CPAP Status: Acute Plan EGD with removal of FB with anesthesia Assessment & Plan narrative: Food bolus in esophagus. Valium Q6 arya along with NPO and IV fluids Hypertension treat with Nitro paste 1 inch(may assist in relaxation of esophagus as well. BMI 43.2 will require Anesthesia if procedure required CBC, CMP, BNP due to medical history in anticipation of anesthetic, COVID pending Plan: EGD with removal of foreign body in am if bolus not passed. Time Spent With Patient Critical Care time: I spent a total of [] minutes of critical care time on this patient's care today; this time is exclusive of procedural time.
[2022-03-14 20:22] LABS: COVID19 -Nasal RAPID Negative (Negative)
[2022-03-14 20:42] VITALS: BP 162/89; PULSE 65; RESP 12; TEMP 36.8; O2SAT 96
[2022-03-14 20:49] VITALS: BP 143/62; PULSE 72; RESP 18; TEMP 36.1; O2SAT 96
[2022-03-14 20:55] VITALS: BMI 43.2
[2022-03-14 21:35] VITALS: BP 143/62; PULSE 72
[2022-03-14] MEDS: NITROGLYCERIN OINT 1 INCH/GM OINT...G. TOP (21:35)
[2022-03-14] MEDS: LACTATED RINGERS 1,000 ML 100 ML IV (21:35)
[2022-03-14 23:07] LABS: Add Manual Diff / Slide Review NO; Basophils Absolute Auto 100 /uL (0-100); Basophils Percent Auto 1.1 % (0-2); Eosinophils Absolute Auto 800 /uL (0-450); Eosinophils Percent Auto 6.5 % (2-4); Hematocrit 40.3 % (41-53); Hemoglobin 14.2 g/dL (13.5-17.5); Lymphocytes Absolute Auto 3900 /uL (1100-4500); Lymphocytes Percent Auto 32.9 % (25-40); Mean Corpuscular HGB Conc 35.3 % (30-36); Mean Corpuscular Hemoglobin 31.2 PG (26-34); Mean Corpuscular Volume 88.4 fL (80-100); Monocytes Absolute Auto 900 /uL (0-900); Monocytes Percent Auto 7.7 % (3-14); Neutrophils Absolute Auto 6100 /uL (1500-7000); Neutrophils Percent Auto 51.8 % (50-75); Platelet Count 264 X10^3/uL (150-400); Red Blood Cell Count 4.56 X10^6/uL (4.5-5.9); Red Cell Distribution Width 13.1 % (11.6-14.8); White Blood Cell Count 11.9 X10^3/uL (4.5-11.0)
[2022-03-14 23:14] LABS: Alanine Aminotransferase 82 IU/L (<50); Albumin Globulin Ratio 1.2 (1.0-2.8); Alkaline Phosphatase 40 U/L (38-126); Aspartate Aminotransferase 48 IU/L (17-59); BUN Creatinine Ratio 29.1 (6-22); Bilirubin Total 0.5 mg/dL (0.2-1.3); Blood Urea Nitrogen 23 mg/dL (9-20); Calcium 9.8 mg/dL (8.4-10.2); Carbon Dioxide 25 mmol/L (22-32); Chloride 103 mmol/L (98-107); Estimated Glomerular Filt Rate > 60 mL/min (>60); Globulin 4.2 g/dL (1.7-4.1); Glucose 101 mg/dL (80-110); HEMOLYSIS < 15 (0-50); Potassium 3.8 mmol/L (3.4-5.1); Sodium 141 mmol/L (137-145); Total Protein 9.2 g/dL (6.3-8.2)
--- NOTE | 2022-03-14 23:15 | PC.NURSE ---
Pt. admitted from ER. Ambulatory, oriented to his room. Denies any nausea, pain & other discomfort. Admit assessment was done by BECKY. Will cont. POC & monitor.
[2022-03-14 23:21] VITALS: BMI 43.2
[2022-03-14 23:22] LABS: NT-proBNP (BNP-Adult 18+) 45 pg/mL (<125)
[2022-03-15] VITALS (10 sets, daily range): BP systolic 125–155; BP diastolic 66–79; PULSE 58–68; RESP 16–20; TEMP 36.2–36.8; O2SAT 94–98; BMI 43.2
--- NOTE | 2022-03-15 | PATH_ITS ---
[facility] Accession Number: [id number] . 01 Material submitted: . gastrointestinal site - GASTROINTESTINAL . 01 Clinical history: . SOMETHING STUCK IN THROAT . 01 Diagnosis: Stomach, Biopsy: Body-type mucosa with no diagnostic abnormality. Negative for Helicobacter by immunohistochemistry. Negative for intestinal metaplasia. Negative for dysplasia and malignancy. MRV 03/20/2022 1348 Local . 01 Electronically signed: . Caitlyn Umaña MD, Pathologist NPI- [id number] . 01 Gross description: . NO SITE DESIGNATED: Received in formalin are 2 fragment(s) of fenton, soft tissue measuring 0.1 x 0.1 x 0.1 cm to 0.4 x 0.2 x 0.2 cm submitted entirely in 1 cassette(s) /NAM 03/15/2022 2356 Local . 01 Microscopic: . An immunohistochemical stain was performed to evaluate for Helicobacter organisms and is negative. The control stain showed appropriate reactivity. . * This test was developed and its performance characteristics determined by [facility]. It has not been cleared or approved by the U.S. Food and Drug Administration. The FDA has determined that such clearance or approval is not necessary. This test is used for clinical purposes. It should not be regarded as investigational or for research. . 01 Pathologist provided ICD-10: R13.10 . 01 CPT . 429778, N87812 Specimen Comment: A courtesy copy of this report has been sent to [phone] Performed at: 01 [facility] [address] [place] [address] [address], [place], [place] [id number] MD Darrell Hagan MD Phone: [phone]
[2022-03-15] MEDS: LACTATED RINGERS 1,000 ML 100 ML IV (07:52)
--- NOTE | 2022-03-15 08:28 | PM.OP.1 ---
Operative Date/Time/Diagnoses Date of procedure: 03/15/22 Time of procedure: 08:29 Pre-op diagnosis: Foreign body in esophagus Post-op diagnosis: same Procedure & Clinicians Procedure: EGD with removal of foreign body along with cold forceps biopsy gastric mucosa Same procedure as scheduled: Yes Indications: Foreign body in the esophagus Surgeon: Ramona Parham Click Yes if Unassisted: Yes Anesthesia Type: MAC +/- Operative Notes Findings: Small amount of retained meat in the distal esophagus. Pwdg-az-stkeoupz to the narrowing of the distal esophagus representing a benign stricture likely from reflux actively inflamed. Normal-appearing stomach. No hiatal hernia. Duodenum was slightly inflamed as well with old scarring for peptic ulcer disease Closure Type: not applicable Specimen(s): other (Antral biopsies for H pylori) Estimated Blood Loss (mL): 0 Procedure in detail: Prep diagnosis: Foreign body of the esophagus Postop diagnosis: Same Operative procedure: EGD with cold forceps biopsy using MAC Findings: Small amount retained foreign body representing steak in the distal esophagus. Yxxm-no-ngzgvcma distal esophageal benign stricture Mild inflammation of the duodenum. No hiatal hernia Surgeon: Sheela Parham MD Anesthetic: Mac Procedure: Patient placed in supine position. Anesthetic was provided. Scope inserted into the esophagus advanced into the stomach Magali I had the pylorus intubated into the duodenum. Insufflation and extraction of the scope including retroflex and the above findings. Impression: Benign distal esophageal stricture geps-xc-pambrfpj in degree. Small amount retained steak within the lower esophagus as well. Plan: Place him on a PPI b.i.d. for 2 weeks, then down to 1 daily. Follow-up with PCP for re-evaluation of medication and possibility of elective EGD with dilation. Complications: none Post-operative Condition: stable Disposition: PACU
--- NOTE | 2022-03-15 09:30 | CM.DANOTE ---
DCP: Case received, EMR reviewed and met with patient. Introduced self and role. Was able to obtain informatin regarding patient's baseline activity status prior to hospitalization. DCP assessment completed with information currently available. Patient is a 61 year old male who admitted yesterday evening to the care of the hospitalist team. PCP: CRISTY Molina at [facility]. Payer: confirmed: [employer]. Patient came to the hospital via private vehicle secondary to having something lodged in his throat. Patient had complained of food being stuck in his chest after eating steak. Patient was admitted for food bolus in his throat for removal of foreign body, with EGD. Met with patient in his room. He came back from EGD procedure, feeling better. He was sitting up in bed. Confirmed that he resides alone in [place], his mother, Yoko, also lives in the area. He is independent at his baseline, and works at [employer] here in [place]. His primary care provider used to be Dr. Gonzalez, but he is at another clinic, and he has seen CRISTY Molina at the [facility]. P: DCP to continue to follow. Patient should be able to go home when he is deemed medically stable. Aurora Bowling RN/Shirt Hemmer Discharge Planning/Care Management CM Discharge Assessment Start: 03/15/22 09:29 Freq: Status: Active Protocol: Document 03/15/22 09:29 (Rec: 03/15/22 09:30 [id number]) Discharge Planning Assessment Assigned Wheel Grinder Aurora Bowling RN/Shirt Hemmer Advance Directives? Yes Advance Directives on File No History Provided By Patient,Medical Record Prior Living Arrangements House Household Members significant other,none Type of transporation used prior to Drives own vehicle admit Independent with ADL's Yes Is patient alert and oriented? Yes Caregiver for Another No Barriers to Discharge No Discharge Plan Home Transportation Arrangement Friend, or mother Referrals Initiated None needed Whiteboard Updated in Patient Room with Yes name and ext. # of Wheel Grinder Review Status In Process Next Review Type Continued Stay Review
[2022-03-15] MEDS: prednisoLONE OPHTH SUSP 1 DROPS EYE-LEFT (09:48)
[2022-03-15] MEDS: DORZOLAMIDE/TIMOLOL OPHTH 10 ML 1 DROPS EYE-BOTH (09:48)
--- NOTE | 2022-03-15 10:54 | PC.NURSE ---
Addendum entered by Ranjith Georges R.N. 03/15/22 10:56: Pt readying for discharge. Waiting on ride. feel better after procedure. Pt offers no c/o eager to head out to home. Original Note: Pt A&O conversant. Readying for EGD. Anticipates d/c after test.
== END 2022-03-15 11:55 | disposition home or self-care (01) ==
LOC: ED 19:46 → AC 19:50
PROVIDERS: Admitting Provider Surgery; Emergency Provider Emergency Medicine; Family Provider Family Medicine; PCP Family Medicine; Visit Provider Surgery
PROC: 0DJ08ZZ Inspection of Upper Intestinal Tract, Via Natural or Artificial Opening Endoscopic (ICD-10-PCS; CPT 43235; principal; 2022-03-15 08:00)
DX: R13.10 Dysphagia, unspecified (principal); Z20.822 Contact with and (suspected) exposure to COVID-19; G47.30 Sleep apnea, unspecified; I10 Essential (primary) hypertension; E66.01 Morbid (severe) obesity due to excess calories; Z68.41 Body mass index [BMI] 40.0-44.9, adult
CPT/HCPCS: 43247; 43239; 00731; 36415; 80053; 83880; 85025; 87635; 94660; 96361; 96374; 99284; C9803; G0378; J1610; J2250; J2704

== ENCOUNTER → 2024-12-10 11:00 | Outpatient (CLI) | payer OTHER, SELFPAY ==
--- NOTE | 2024-12-10 11:02 | DI.RAD.S_ITS ---
PROCEDURE: XR HAND LT MIN 3V INDICATIONS: persistent left hand pain TECHNIQUE: 3 views of the hand(s) acquired. COMPARISON: None. FINDINGS: Bones: No fractures or dislocations. Carpal bones are normally aligned. No suspicious bony lesions. Soft tissues: No suspicious soft tissue calcifications. IMPRESSION: No acute bony abnormality. Approved by: Marilou Christianson M.D.,Ph.D. on 12/14/2024 at 12:22
== END ==
PROVIDERS: Family Provider Family Medicine; PCP Family Medicine; Referring Provider Family Medicine; Visit Provider Family Medicine
DX: M79.642 Pain in left hand (principal)
CPT/HCPCS: 73130

== ENCOUNTER 2025-03-12 10:07 | Emergency (ER) | payer OTHER, SELFPAY ==
[2025-03-12] VITALS (9 sets, daily range): BP systolic 109–139; BP diastolic 60–89; PULSE 75–96; RESP 16–23; TEMP 36.9; O2SAT 95–98; BMI 45.6
--- NOTE | 2025-03-12 10:16 | EKG_ITS ---
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
--- NOTE | 2025-03-12 10:20 | DI.RAD.S_ITS ---
PROCEDURE: XR CHEST 1V INDICATIONS: Chest Pain TECHNIQUE: One view of the chest was acquired. COMPARISON: None. FINDINGS: Surgical changes and devices: None. Lungs and pleura: Lungs are clear. No pleural effusions or pneumothorax. Mediastinum: Mediastinal contours appear normal. Heart size is normal. Bones and chest wall: No suspicious bony lesions. Overlying soft tissues appear unremarkable. IMPRESSION: No acute cardiopulmonary abnormality is seen. Dictated by: Radha Watters M.D. on 03/12/2025 at 9:30 Approved by: Radha Watters M.D. on 03/12/2025 at 9:31
[2025-03-12 10:32] LABS: Add Manual Diff / Slide Review NO; Hematocrit 41.5 % (41-53); Hemoglobin 14.4 g/dL (13.5-17.5); Lymphocytes Absolute Auto 1900 /uL (1100-4500); Mean Corpuscular HGB Conc 34.7 % (30-36); Mean Corpuscular Hemoglobin 31.6 PG (26-34); Mean Corpuscular Volume 90.9 fL (80-100); Platelet Count 265 X10^3/uL (150-400)
--- NOTE | 2025-03-12 10:37 | ED.ARRPALP ---
HPI - Arrhythmia/Palpitations General Chief Complaint: Arrhythmia/Palpitations Stated Complaint: Poss AFIB Time Seen by Provider: 03/12/25 10:12 History of Present Illness HPI narrative: 64-year-old gentleman history of hypertension, psoriatic arthritis, glaucoma bilateral, presents with new onset atrial fibrillation as he was driving today smart watch went off saying he had atrial fibrillation ranging from 80s to 120s went to walk-in clinic which confirmed atrial fibrillation sent over here for further evaluation. Patient denies headache, dizziness, lightheadedness, chest pain, shortness of breath, dyspnea on exertion, leg pain, leg swelling, diaphoresis, nausea, vomiting. Other than what is stated 14 point review of system is negative. Related Data Home Medications ?Medication ?Instructions ?Recorded ?Confirmed dorzolamide 22.3 mg-timolol 6.8 1 drp EYE-BOTH BID ##0 07/22/16 12/10/24 mg/mL eye drops (Cosopt) prednisolone acetate 1 % eye 1 drp EYE-LEFT BID ##0 07/22/16 12/10/24 drops,suspension (Pred Forte) calcium polycarbophil 625 mg 2 tab PO QDAY ##0 11/27/16 12/10/24 tablet (FiberCon) multivitamin (Multiple Vitamins 1 tab PO QDAY ##0 11/27/16 12/10/24 tablet) latanoprost 0.005 % eye drops 1 drp EYE-BOTH DAILY 06/01/20 12/10/24 folic acid 1 mg tablet 1 mg PO DAILY 11/04/24 12/10/24 meloxicam 15 mg tablet 15 mg PO DAILY 11/04/24 12/10/24 methotrexate sodium 25 mg/mL 20 mg SUBCUT QWEEK 11/04/24 12/10/24 injection solution secukinumab 150 mg/mL subcutaneous 150 mg SUBCUT Q2W 11/04/24 12/10/24 syringe (Cosentyx 300 mg/2 Syringes () Previous Rx's ?Medication ?Instructions ?Recorded amlodipine 10 mg tablet 10 mg PO DAILY #90 tabs 11/04/24 fosinopril 40 mg tablet 40 mg PO DAILY #90 tabs 11/04/24 furosemide 20 mg tablet 20 mg PO DAILY #90 tabs 11/04/24 sertraline 100 mg tablet (Zoloft) 100 mg PO QDAY #90 tabs 11/04/24 montelukast 10 mg tablet 10 mg PO BEDTIME #90 tabs 11/05/24 apixaban 5 mg tablet (Eliquis) 5 mg PO BID #30 tabs 03/12/25 metoprolol tartrate 25 mg tablet 25 mg PO BID #30 tabs 03/12/25 Allergies Allergy/AdvReac Type Severity Reaction Status Date / Time Penicillins (PENICILLINS) Allergy Unknown Pt told as Verified 12/10/24 10:46 a child-unknown reaction Review of Systems Review of Systems ROS Unobtainable: All systems reviewed & are unremarkable except as noted in HPI and below Patient History Medical History Anxiety and depression Bronchitis Elevated liver enzymes Fatty liver disease, nonalcoholic Glaucoma HTN (hypertension) Numbness Osteoarthritis Psoriasis Sinus drainage Sleep apnea Surgical History History of bilateral cataract extraction History of corneal transplant Hx of abdominal surgery Hx of abdominal surgery (~1986) Hx of eye surgery Hx of laminectomy (11/30/16) Hx of sinus surgery Hx of tonsillectomy (~2014) Social History (Updated 12/10/24 @ 10:48 by Zee Torres MA) household members: significant other and none alcohol intake: current alcohol intake frequency: holidays/special occasions only Exam Narrative Exam Narrative: GENERAL: [64] year old patient appears stated age. Well-developed patient, in mild distress. HEAD: Atraumatic. Normocephalic. EYES: Pupils equal round and reactive. Extraocular motions intact. No scleral icterus. No injection or drainage. ENT: Nose without bleeding, purulent drainage. Throat without erythema, tonsillar hypertrophy or exudate. Airway patent. NECK: Trachea midline. Non tender CARDIOVASCULAR: Irregularly irregular without murmurs, gallops, or rubs. RESPIRATORY: Clear to auscultation. Breath sounds equal bilaterally. No wheezes, rales, or rhonchi. GASTROINTESTINAL: Abdomen soft, non-tender, nondistended. EXTREMITIES: No edema or joint tenderness. BACK: Nontender without deformity or crepitance. No flank tenderness. NEURO: AOx3. SKIN: No rash or erythema of visible areas Initial Vital Signs Initial Vital Signs: Vital Signs Pulse Rate 96 H 03/12/25 10:14 Blood Pressure 139/89 03/12/25 10:14 Pulse Oximetry 98 03/12/25 10:14 Scores HEART Score Heart Score history: Slightly Suspicious Heart Score EKG: Non-Specific repolarization disturbance Heart Score Age: > or = 65 years old Heart Score risk factors: 1-2 risk factors Heart Score troponin: < or = to normal limit Heart Score Total: 4 Course Orders Ordered: ED Orders 03/12/25 10:11 TSH [Thyroid Stimulating Hormone] Stat 03/12/25 10:15 Complete Blood Count AUTO DIFF Stat Comprehensive Metabolic Panel Stat Lipase Stat Magnesium Stat NT-proBNP (BNP-Adult 18+) Stat PTT Partial Thromboplastin Say Stat Prothrombin Time INR Stat Troponin & CK Cardiac Panel Stat 03/12/25 10:20 XR chest 1V Stat EKG-12 Lead Stat 03/12/25 12:05 Troponin I Stat Discontinued Medications Apixaban (Apixaban 5 Mg Tablet) 5 mg PO NOW ONE Stop: 03/12/25 11:25 Last Admin: 03/12/25 11:39 Dose: 5 mg Documented By: ELDA Metoprolol Tartrate (Metoprolol Ir 25 Mg Tablet) 25 mg PO NOW ONE Stop: 03/12/25 11:25 Last Admin: 03/12/25 11:39 Dose: 25 mg Documented By: ELDA Vital Signs Vital signs: Vital Signs - 8 hr 03/12/25 10:14 03/12/25 10:14 03/12/25 10:17 Temperature 98.4 F Pulse Rate 96 H 88 Respiratory Rate 16 Blood Pressure 139/89 139/89 Pulse Oximetry 98 98 Oxygen Delivery Method Room Air 03/12/25 10:30 03/12/25 10:32 03/12/25 10:32 Temperature Pulse Rate 89 90 Respiratory Rate 23 21 Blood Pressure 117/73 Pulse Oximetry 96 98 Oxygen Delivery Method 03/12/25 11:00 03/12/25 11:00 03/12/25 11:30 Temperature Pulse Rate 91 H Respiratory Rate 23 Blood Pressure 116/67 132/75 Pulse Oximetry 96 Oxygen Delivery Method 03/12/25 11:30 03/12/25 12:00 03/12/25 12:00 Temperature Pulse Rate 87 87 Respiratory Rate 22 Blood Pressure 119/63 Pulse Oximetry 96 96 Oxygen Delivery Method MDM - Arrhythmia/Palpitations Lab Data 03/12/25 10:15 03/12/25 10:15 Labs: Lab Results 03/12/25 03/12/25 03/12/25 Range/Units 10:11 10:15 12:05 WBC 7.2 (4.5-11.0) X10^3/uL RBC 4.57 (4.5-5.9) X10^6/uL Hgb 14.4 (13.5-17.5) g/dL Hct 41.5 (41-53) % MCV 90.9 (80-100) fL MCH 31.6 (26-34) PG MCHC 34.7 (30-36) % RDW 14.0 (11.6-14.8) % Plt Count 265 (150-400) X10^3/uL Neut % (Auto) 59.2 (50-75) % Lymph % (Auto) 26.7 (25-40) % Haines % (Auto) 9.8 (3-14) % Eos % (Auto) 3.8 (2-4) % Baso % (Auto) 0.5 (0-2) % Neut # (Auto) 4200 (9022-2251) /uL Lymph # (Auto) 1900 (7393-5131) /uL Haines # (Auto) 700 (0-900) /uL Eos # (Auto) 300 (0-450) /uL Baso # (Auto) 0 (0-100) /uL PT 13.0 H (9.4-12.5) SECONDS INR 1.1 (0.9-1.3) APTT 34 (25.1-36.5) SECONDS Sodium 140 (137-145) mmol/L Potassium 4.5 (3.4-5.1) mmol/L Chloride 103 (98-107) mmol/L Carbon Dioxide 27 (22-32) mmol/L BUN 22 H (9-20) mg/dL Creatinine 0.84 (0.66-1.25) mg/dL Estimated GFR > 60 (>60) mL/min BUN/Creatinine Ratio 26.2 H (6-22) Glucose 90 (70-99) mg/dL Calcium 9.4 (8.4-10.2) mg/dL Magnesium 1.7 (1.6-2.3) mg/dL Total Bilirubin 0.8 (0.2-1.3) mg/dL AST 36 (17-59) IU/L ALT 45 (<50) IU/L Alkaline Phosphatase 36 L (38-126) U/L Total Creatine Kinase 45 L (55-170) U/L Troponin I < 0.012 < 0.012 (0.01-0.034) ng/mL NT-Pro-B Natriuret Pep 450 H (<125) pg/mL Total Protein 8.3 H (6.3-8.2) g/dL Albumin 4.9 (3.5-5.0) g/dL Globulin 3.4 (1.7-4.1) g/dL Albumin/Globulin Ratio 1.4 (1.0-2.8) Lipase 75 (23-300) U/L TSH 3.17 (0.47-4.68) uIU/mL ECG Data Interpretation: Afib HR 85 NH undetermined QRS [address]-t wave change Change from 09/16/18 MDM Narrative Medical decision making narrative: All lab work vital signs nurse triage note medication list previous ER visits in all imaging studies reviewed. Heart score 4. Chest x-ray showed no acute process. EKG showed new onset atrial fibrillation rate control. Patient given metoprolol Eliquis here and will be discharged on both medicines and to follow up PCP next week for continuity of care. BNP 450. Differential diagnosis STEMI NSTEMI unstable angina AFib a flutter CHF. Discharge Plan Departure Patient Disposition: Home Clinical Impression: Atrial fibrillation Qualifiers: Atrial fibrillation type: unspecified Qualified Code(s): I48.91 - Unspecified atrial fibrillation Instructions: DI for Atrial Fibrillation Activity Restrictions/Additional Instructions: Return with new or worsening symptoms. Follow up with Dr. Moreno this coming week. Take your medicines directed. Prescriptions: New metoprolol tartrate 25 mg tablet 25 mg PO BID Qty: 30 0RF Eliquis 5 mg tablet 5 mg PO BID Qty: 30 0RF No Action dorzolamide-timolol [Cosopt] 2 %/0.5 % drops 1 drp EYE-BOTH BID Qty: 0 prednisolone acetate [Pred Forte] 1 % drops,suspension 1 drp EYE-LEFT BID Qty: 0 multivitamin [Multiple Vitamins] 1 EACH tablet 1 tab PO QDAY Qty: 0 calcium polycarbophil [FiberCon] 625 MG tablet 2 tab PO QDAY Qty: 0 montelukast 10 mg tablet 10 mg PO BEDTIME Qty: 90 2RF methotrexate sodium 25 mg/mL solution 20 mg SUBCUT QWEEK meloxicam 15 mg tablet 15 mg PO DAILY folic acid 1 mg tablet 1 mg PO DAILY Cosentyx (2 Syringes) 150 mg/mL syringe 150 mg SUBCUT Q2W amlodipine 10 mg tablet 10 mg PO DAILY Qty: 90 3RF furosemide 20 mg tablet 20 mg PO DAILY Qty: 90 3RF fosinopril 40 mg tablet 40 mg PO DAILY Qty: 90 3RF sertraline [Zoloft] 100 mg tablet 100 mg PO QDAY Qty: 90 3RF latanoprost 0.005 % Drops 1 drp EYE-BOTH DAILY Referrals: Karuna Moreno DO [Primary Care Provider, Family Practice] Stand Alone Forms: Patient Portal/API
[2025-03-12 10:46] LABS: INR 1.1 (0.9-1.3); Prothrombin Time 13.0 SECONDS (9.4-12.5)
[2025-03-12 10:48] LABS: PTT Partial Thromboplastin Tim 34 SECONDS (25.1-36.5)
[2025-03-12 10:50] LABS: Alanine Aminotransferase 45 IU/L (<50); Albumin 4.9 g/dL (3.5-5.0); Albumin Globulin Ratio 1.4 (1.0-2.8); Alkaline Phosphatase 36 U/L (38-126); Blood Urea Nitrogen 22 mg/dL (9-20); Calcium 9.4 mg/dL (8.4-10.2); Carbon Dioxide 27 mmol/L (22-32); Chloride 103 mmol/L (98-107); Creatine Kinase 45 U/L (55-170); Estimated Glomerular Filt Rate > 60 mL/min (>60); Globulin 3.4 g/dL (1.7-4.1); Glucose 90 mg/dL (70-99); HEMOLYSIS 21 (0-50); Lipase 75 U/L (23-300); Magnesium 1.7 mg/dL (1.6-2.3); Potassium 4.5 mmol/L (3.4-5.1); Sodium 140 mmol/L (137-145); Total Protein 8.3 g/dL (6.3-8.2)
[2025-03-12 11:01] LABS: NT-proBNP (BNP-Adult 18+) 450 pg/mL (<125); Troponin I < 0.012 ng/mL (0.01-0.034)
[2025-03-12 11:29] LABS: Thyroid Stimulating Hormone 3.17 uIU/mL (0.47-4.68)
[2025-03-12] MEDS: METOPROLOL IR 25 MG TABLET PO (11:39)
[2025-03-12] MEDS: APIXABAN 5 MG TABLET PO (11:39)
[2025-03-12 12:38] LABS: Troponin I < 0.012 ng/mL (0.01-0.034)
== END 2025-03-12 13:12 | disposition home or self-care (01) ==
PROVIDERS: Emergency Provider Family Medicine; Family Provider Family Medicine; PCP Family Medicine
DX: I48.91 Unspecified atrial fibrillation (principal)
CPT/HCPCS: 36415; 71045; 80053; 82550; 83690; 83735; 83880; 84443; 84484; 85025; 85610; 85730; 93005; 93010; 99284